=== PATIENT | female | born 2000 | race American Indian/Alaskan Native ===

== ENCOUNTER 2020-11-16 13:05 | Outpatient (CLI) | payer MEDICAID ==
[2020-11-16 14:15] VITALS: BP 112/65
[2020-11-16 14:24] LABS: Bacteria,Urine 2+ /HPF (Negative); Bilirubin,Urine NEG (Negative); Blood,Urine NEG (Negative); Color,Urine Amber (Yellow); Mucus,Urine 2+ /HPF
== END 2020-11-16 15:30 | disposition home or self-care (01) ==
LOC: TRG 13:05 → APU 13:07 → TRG 15:30
PROVIDERS: ATTEND Obstetrics & Gynecology
DX: Z34.93 Encounter for supervision of normal pregnancy, unspecified, third trimester (principal); Z3A.39 39 weeks gestation of pregnancy
CPT/HCPCS: 59025; 81001